=== PATIENT | female | born 1935 | race Caucasian/White ===

== ENCOUNTER → 2021-09-30 | Day surgery (SDC) | payer MEDICARE, OTHER ==
[~2021-09-30] VITALS: Ht 152.4 cm; Wt 63.5 kg
[~2021-09-30] MED LIST: ASCORBIC ACID500 MG PO; ASPIRIN EC81 MG PO; AZO D-MANNOSE500 MG PO; B COMPLEX1 EACH PO; CENTRUM CHEWAB1 EAC2 PO; COZAAR100 MG PO; MYRBETRIQ25 MG PO; OMEPRAZOLE40 MG PO; SINGULAIR10 MG PO; TOPROL XL 50 MG50 MG PO
[2021-09-30 09:10] LABS: HGB 12.5 g/dl (12.5-16.0); MCH 30.6 pg (25.0-31.0); MCHC 32.9 g/dL (32.0-36.0); MCV 92.9 fL (78.0-100.0); MPV 9.1 fL (6.0-9.5); RBC 4.09 M/uL (4.20-5.40); RDW 13.4 % (11.5-14.0); WBC 8.4 K/uL (4.0-10.5)
[2021-09-30 09:24] LABS: ALBUMIN 3.2 g/dL (3.4-5.0); BILIRUBIN - TOTAL 0.4 mg/dL (0.2-1.0); BUN/CREAT RATIO (CALC) 20.4 RATIO; CREATININE 0.98 mg/dL (0.51-0.95); GLOBULIN (CALCULATION) 3.4 g/dL; POTASSIUM 5.1 mmol/L (3.5-5.1); TOTAL PROTEIN 6.6 g/dL (6.4-8.2)
== END | disposition home or self-care (01) ==
LOC: FAS 08:02 → EDBD 09:45
PROVIDERS: Surgery
DX: K29.50 Unspecified chronic gastritis without bleeding (principal); K21.00 Gastro-esophageal reflux disease with esophagitis, without bleeding; K22.89 Other specified disease of esophagus; K44.9 Diaphragmatic hernia without obstruction or gangrene; Z90.710 Acquired absence of both cervix and uterus; Z79.82 Long term (current) use of aspirin; Z20.822 Contact with and (suspected) exposure to COVID-19
CPT/HCPCS: 36415; 80053; J2704; J7120